=== PATIENT | female | born 1935 ===

== ENCOUNTER 2017-03-26 08:25 | Day surgery (SDC) | payer MEDICARE, OTHER ==
[2017-03-24 09:43] VITALS: BMI 40.4
[2017-03-26 09:42] LABS: HEMOGLOBIN 11.5 g/dL (11.0-16.0); MEAN CELL VOLUME 91.2 fL (81.0-99.0); MEAN CORPUSCULAR HEMOGLOBIN 28.9 pg (27.0-31.0); MEAN CORPUSCULAR HGB CONC 31.6 g/dL (33.0-37.0); MEAN PLATELET VOLUME 10.2 fL (7.2-11.7); RBC 3.99 Mil/uL (3.80-5.20); RED CELL DISTRIBUTION WIDTH 14.5 % (11.5-14.5); WHITE BLOOD COUNT 8.9 K/uL (4.8-10.8)
[2017-03-26 09:54] LABS: INR 0.9; PROTHROMBIN TIME 10.4 SECONDS (9.7-12.2)
[2017-03-26 09:55] LABS: BLOOD UREA NITROGEN 25 mg/dL (7-17); GFR AFRICAN-AMERICAN > 60; GFR NON-AFRICAN AMERICAN > 60
[2017-03-26 09:56] LABS: CALCIUM 8.4 mg/dl (8.6-10.4)
[2017-03-26] MEDS ORDERED: Midazolam 2 MG/2 ML VIAL ONE (10:21)
[2017-03-26] MEDS ORDERED: Iohexol 350mg/ml 100 ML ONE (10:36)
[2017-03-26] MEDS ORDERED: Nitroglycerin 50mg in D5W 50 MG/250 ML BOTTLE IV ONE (10:38)
--- NOTE | 2017-03-26 11:10 | CP.PCM.CON ---
History of Present Illness - History of Present Illness History of Present Illness: Patient s/p cath Right radial access 1. L Main, LAD and L cx arteries patent 2. RCA Non obstructive 60% Proximal to mid stenosis 3. dilated LV with EF of 25%, EDP 35 Non Ischemic CMP Non Obstructive Coronaries Medical management Past Patient History - Past Social History Smoking Status: Never Smoked - CARDIAC Hx Cardiac Disorders: Yes (ISCHEMIC CARDIOMYOPATHY CAD) Hx Cardia Arrhythmia: Yes (PACEMAKER DEFIBRILLATOR) Hx Circulatory Problems: Yes Hx Congestive Heart Failure: Yes Hx Hypercholesterolemia: Yes Hx Hypertension: Yes Hx Internal Defibrillator: Yes Hx Pacemaker: Yes Hx Peripheral Edema: Yes - PULMONARY Hx Respiratory Disorders: No - NEUROLOGICAL Hx Neurological Disorder: Yes Hx Dizziness: Yes - HEENT Hx HEENT Problems: No - RENAL Hx Chronic Kidney Disease: No - ENDOCRINE/METABOLIC Hx Endocrine Disorders: Yes Hx Diabetes Mellitus Type 2: Yes Hx Hypothyroidism: Yes - HEMATOLOGICAL/ONCOLOGICAL Hx Blood Disorders: No - INTEGUMENTARY Hx Dermatological Problems: No - MUSCULOSKELETAL/RHEUMATOLOGICAL Hx Musculoskeletal Disorders: Yes Hx Arthritis: Yes Hx Falls: No - GASTROINTESTINAL Hx Gastrointestinal Disorders: No - GENITOURINARY/GYNECOLOGICAL Hx Genitourinary Disorders: No - PSYCHIATRIC Hx Psychophysiologic Disorder: No Hx Substance Use: No - SURGICAL HISTORY Hx Surgeries: Yes Hx Cardiac Catheterization: Yes Hx Coronary Stent: Yes Hx Herniorrhaphy: Yes Hx Hysterectomy: Yes - ANESTHESIA Hx Anesthesia: Yes Hx Anesthesia Reactions: No Hx Malignant Hyperthermia: No Has any member of the family had a problem w/ anesthesia?: No Meds Allergies/Adverse Reactions: Allergies Allergy/AdvReac Type Severity Reaction Status Date / Time No Known Allergies Allergy Verified 06/09/14 20:04 Results - Labs Result Diagrams: 03/26/17 09:32 03/26/17 09:32 Labs: Laboratory Results - last 24 hr 03/26/17 03/26/17 03/26/17 09:32 09:32 09:32 WBC 8.9 RBC 3.99 Hgb 11.5 Hct 36.4 MCV 91.2 D MCH 28.9 MCHC 31.6 L RDW 14.5 Plt Count 187 MPV 10.2 PT 10.4 INR 0.9 APTT 26 Sodium 136 Potassium 4.2 Chloride 100 Carbon Dioxide 26 Anion Gap 14 BUN 25 H Creatinine 0.9 Est GFR ( Amer) > 60 Est GFR (Non-Af Amer) > 60 Random Glucose 106 H Calcium 8.4 L
[2017-03-26 13:58] VITALS: O2SAT 100
--- NOTE | 2017-03-29 03:08 | CARDCATH ---
PROCEDURE DATE: 03/26/2017 PROCEDURES: 1. Left heart catheterization. 2. Coronary angiogram. CLINICAL INDICATIONS: 1. Angina. 2. Hypertension. 3. Nonischemic cardiomyopathy. 4. Hyperlipidemia. 5. Abnormal stress test. PERFORMING PHYSICIAN: Dr. Manny Nolan. DESCRIPTION OF PROCEDURE: After informed consent, patient was prepped and draped in the usual sterile fashion. A 2% lidocaine was given in the right groin for local anesthesia. Using micropuncture technique, 6-Setswana sheath was introduced into the right common femoral artery. Using the usual diagnostic catheter, left heart catheterization and coronary angiogram were performed. The patient tolerated the procedure well. FINDINGS: 1. Left main coronary artery is patent 2. LAD and diagonal branches are patent. 3. Left circumflex and obtuse marginal branches are patent. 4. Right coronary artery has non-obstructive 60% stenosis in the mid region. Distal right coronary artery and PDA branches are patent. 5. LV ejection fraction is 25%. Dilated left ventricle. EDP is 35. Low gradient aortic valve. IMPRESSION: 1. Right coronary artery has mid 60% non-obstructive stenosis. 2. Nonischemic cardiomyopathy with ejection fraction of 25%. Recommend medical management. Manny Nolan MD
[2017-03-29 12:41] VITALS: RESP 14
== END 2017-03-26 14:20 | disposition home or self-care (01) ==
LOC: C.CATHLAB 08:25
PROVIDERS: ATTEND Internal Medicine Cardiovascular Disease
DX: I25.119 Atherosclerotic heart disease of native coronary artery with unspecified angina pectoris (principal); Z95.5 Presence of coronary angioplasty implant and graft; R94.39 Abnormal result of other cardiovascular function study; I42.9 Cardiomyopathy, unspecified; Z95.810 Presence of automatic (implantable) cardiac defibrillator; I11.0 Hypertensive heart disease with heart failure; I50.9 Heart failure, unspecified; E11.9 Type 2 diabetes mellitus without complications; E03.9 Hypothyroidism, unspecified; E78.5 Hyperlipidemia, unspecified
CPT/HCPCS: 36415; 80048; 85027; 85610; 85730; 93458; 94770; C1769; C1887; J1644; J2250; J3010; Q9967